=== PATIENT | male | born 1970 | race Caucasian/White ===

== ENCOUNTER 2018-02-24 14:14 | Emergency (ER) | payer OTHER ==
[2018-02-24 14:33] VITALS: BP 141/80
--- NOTE | 2018-02-24 14:47 | UC ---
Cardiac HPI - HPI Summary HPI Summary: Pt presents reporting increased pain left anterior chest wall with coughing. Pt states no pain before or after coughing. no radiation. No lightheadedness. No nausea, vomiting. No diaphoresis. Pt denies lightheadedness. Pt states pain increases with movement of arm. Pt denies all discomfort a presentation. Pt states has cough is chronic but slight increase over last 2 weeks. + sputum production - yellow to green. Pt has a PCP but has not been there recently Has ventolin - doesn't use it. Smokes 1.5 ppd + daily ETOH. Pt's medications reviewed this visit - History of Current Complaint Chief Complaint: UCChestPain Stated Complaint: CHEST PAIN Time Seen by Provider: 02/24/18 14:38 Hx Obtained From: Patient Onset/Duration: Other - brief with cough only Timing: Intermittent Episodes Lasting: - with cough only - brief Current Severity: None Pain Intensity: 0 Chest Pain Location: Left Anterior Aggravating Factor(s): Other - cough, movement LUE Alleviating Factor(s): Rest, Spontaneous Resolution Associated Signs & Symptoms: Positive: Chest Pain. Negative: Anxiety, Headaches , Numbness, Tingling, Weakness, Dizziness, Palpitations, Cough, Back Pain, Abdominal Pain - Allergy/Home Medications Allergies/Adverse Reactions: Allergies Allergy/AdvReac Type Severity Reaction Status Date / Time No Known Allergies Allergy Verified 02/24/18 14:28 PMH/Surg Hx/FS Hx/Imm Hx Previously Healthy: Yes Respiratory History: COPD - Surgical History Surgical History: Yes Surgery Procedure, Year, and Place: L knee surgery - Family History Known Family History: Positive: Cardiac Disease - father, Hypertension, Diabetes , Renal Disease - Social History Occupation: Employed Full-time Lives: With Family Alcohol Use: Daily Alcohol Amount: 9 drinks/day Substance Use Type: None Smoking Status (MU): Heavy Every Day Tobacco Smoker Type: Cigarettes Amount Used/How Often: 1 1/2 PPD Length of Time of Smoking/Using Tobacco: 28 Years Have You Smoked in the Last Year: Yes Household Exposure Type: Cigarettes - Immunization History Most Recent Influenza Vaccination: ~09/01/15 Review of Systems Constitutional: Negative Skin: Negative Eyes: Negative ENT: Negative Respiratory: Cough Cardiovascular: Negative Gastrointestinal: Negative Genitourinary: Negative All Other Systems Reviewed And Are Negative: Yes Physical Exam Triage Information Reviewed: Yes Appearance: Well-Appearing, No Pain Distress, Well-Nourished Vital Signs: Initial Vital Signs Temp 99.4 F 02/24/18 14:29 Pulse 101 02/24/18 14:29 Resp 28 02/24/18 14:29 BP 141/80 02/24/18 14:29 Pulse Ox 98 02/24/18 14:29 Vital Signs Reviewed: Yes Eye Exam: Normal Eyes: Positive: Conjunctiva Clear ENT Exam: Normal ENT: Positive: Normal ENT inspection, Hearing grossly normal, Pharynx normal, TMs normal, Uvula midline Dental Exam: Normal Neck exam: Normal Neck: Positive: Supple, Nontender, No Lymphadenopathy Respiratory: Positive: No respiratory distress, No accessory muscle use, Other: - no cough speaking full easy sentences reproducible left anterior chest wall pain at left sternal border Pain reproducible with ROM upper ext no crepitus scattered wheeze No rhonci. Negative: Chest non-tender Cardiovascular Exam: Normal Cardiovascular: Positive: RRR, No Murmur, Pulses Normal Abdominal Exam: Normal Abdomen Description: Positive: Nontender, No Organomegaly, Soft Bowel Sounds: Positive: Present Musculoskeletal Exam: Normal Musculoskeletal: Positive: Strength Intact Neurological Exam: Normal Neurological: Positive: Alert, Muscle Tone Normal Psychological Exam: Normal Psychological: Positive: Normal Response To Family Diagnostics - Radiology No standard instances Radiology Interpretation Completed By: Radiologist - Patient Name: YOEL ARGUETA Medical Record#: [id number] Ordering Physician: Angeline Cm MD Acct.#: [id number] : 1970 Age: 47 Sex: M Location: [facility] Exam Date: 02/24/18 1456 ADM Status: REG ER Order Information: CHEST PA LAT 2 [facility] Accession Number: [id number] CPT: 58076 HISTORY: Cough COMPARISONS: March VIEWS: 5: Frontal dual-energy and lateral views of the chest. FINDINGS : CARDIOMEDIASTINAL SILHOUETTE: The cardiomediastinal silhouette is normal. DOUG : The doug are normal. PLEURA: There is a small right pleural effusion. LUNG PARENCHYMA: There is hyperinflation with flattening of the diaphragm and expansion of the AP diameter of the chest. ABDOMEN: The upper abdomen is clear. There is no subphrenic gas. BONES AND SOFT TISSUES: No bone or soft tissue abnormalities are noted. OTHER: None. IMPRESSION: 1. COPD. 2. SMALL RIGHT PLEURAL EFFUSION. _ <Electronically signed by Clemente Trinidad MD in OV> 02/24/181516 Dictated By: Clemente Trinidad MD Dictated Date/Time: 02/24/181516 Transcribed Date/Time: 02/24/181514 - EKG Cardiac Rate: NL Cardiac Rhythm: Sinus: Normal Ectopy: None Re-Evaluation - Re-Evaluation First Eval Comment: wheeze resolved following neb. reviewed CXR with pt= - COPD and small effusion. pt to f/u with PCP. rx zithromax. expressed importance to decrease tobacco use, humify CPAP and follow-up with PCP for recheck of CXR and eval of pleural effusion. pt states understanding and agreement with plan - Assessment/Plan Course Of Treatment: pt with left anterior cp with cough only. Pt with chronic cough, productive yellow sputum. Pt with heavy tobacco use. Pt uses CPAP without humidity. will check CXR. neb. reassess. Pt has Albuterol - does not use. Pt's BP slightly elevated - existing dx - Clinical Impression Provider Diagnoses: copd. chest wall pain. pleural effusion. costochondritis Discharge - Sign-Out/Discharge Documenting (check all that apply): Discharge - Discharge Plan Condition: Stable Disposition: HOME Prescriptions: Azithromycin TAB* [Zithromax TAB (Z-DIANE) 250 mg #6 tabs] 2 tab PO .TODAY, THEN 1 DAILY #1 diane Patient Education Materials: Costochondritis (ED), COPD (Chronic Obstructive Pulmonary Disease) (ED), Pleural Effusion (ED), Chest Wall Pain (ED) Referrals: Nolan Rothman DO [Primary Care Provider] - Additional Instructions: - Stay well hydrated. Drink plenty of non-alcoholic, non-caffinated beverages - take antibiotics as prescribed until gone - Use you inhaler - 2 puffs every 4 hours today and tomorrow, then every 4 hours as needed for wheezing - work to decrease your cigarette smoking - humidify the air in your cpap - contact your doctor to schedule a follow-up to today's visit - discuss your lung/xray finding with your provider - okay to take motrin or tylenol for your chest wall pain - If your chest pain changes - becomes constant, not related to cough, you feel short of breath, sweaty or any concerns, call 911 or go directly to the emergency department - Billing Disposition and Condition Condition: STABLE Disposition: HOME
[2018-02-24] MEDS ORDERED: Albuterol/Ipratropium NEB.SOL* Albuterol 2.5 MG/Ipratropium 0.5 MG 3 ML INH ONE (14:56)
--- NOTE | 2018-02-24 15:20 | RAD ---
HISTORY: Cough COMPARISONS: March 31, 2013 VIEWS: 5: Frontal dual-energy and lateral views of the chest. FINDINGS: CARDIOMEDIASTINAL SILHOUETTE: The cardiomediastinal silhouette is normal. TRACEY: The tracey are normal. PLEURA: There is a small right pleural effusion. LUNG PARENCHYMA: There is hyperinflation with flattening of the diaphragm and expansion of the AP diameter of the chest. ABDOMEN: The upper abdomen is clear. There is no subphrenic gas. BONES AND SOFT TISSUES: No bone or soft tissue abnormalities are noted. OTHER: None. IMPRESSION: 1. COPD. 2. SMALL RIGHT PLEURAL EFFUSION.
== END 2018-02-24 15:41 | disposition home or self-care (01) ==
LOC: UCCORT 14:14
DX: J44.9 Chronic obstructive pulmonary disease, unspecified (principal); R07.89 Other chest pain; J90 Pleural effusion, not elsewhere classified; M94.0 Chondrocostal junction syndrome [Tietze]; F17.210 Nicotine dependence, cigarettes, uncomplicated
CPT/HCPCS: 71046; 93005; 99212; A9270-GY; G0463

== ENCOUNTER 2019-06-23 09:57 | Emergency (ER) | payer OTHER ==
[2019-06-23 10:36] VITALS: BP 111/72
--- NOTE | 2019-06-23 11:16 | UC ---
UC General HPI - HPI Summary HPI Summary: 48-year-old male comes in with a chief complaint of pain in his left buttock that runs all the way down the back of his leg into his left calf. Started about 3 weeks ago. Pain is worse with extension of the knee and leaning forward at the hip. Also worse with sitting or palpation. No weakness or numbness. He's taken occasional ibuprofen which helps minimally. No known specific injury. Denies any knowledge of any new activities such as a new sports or a new chair. Denies any low back pain. - History of Current Complaint Chief Complaint: UCLowerExtremity Stated Complaint: BACK TO LEG PAIN Time Seen by Provider: 06/23/19 11:00 Pain Intensity: 7 - Allergy/Home Medications Allergies/Adverse Reactions: Allergies Allergy/AdvReac Type Severity Reaction Status Date / Time No Known Allergies Allergy Verified 06/23/19 10:30 PMH/Surg Hx/FS Hx/Imm Hx Previously Healthy: Yes Endocrine History: Dyslipidemia Cardiovascular History: Hypertension - Surgical History Surgical History: Yes Surgery Procedure, Year, and Place: L knee surgery - Family History Known Family History: Positive: Cardiac Disease - father, Hypertension, Diabetes , Renal Disease - Social History Alcohol Use: Daily Alcohol Amount: 9 beers /day Substance Use Type: None Smoking Status (MU): Heavy Every Day Tobacco Smoker Type: Cigarettes Amount Used/How Often: 1 1/2 PPD Length of Time of Smoking/Using Tobacco: 28 Years Have You Smoked in the Last Year: Yes Household Exposure Type: Cigarettes - Immunization History Most Recent Influenza Vaccination: ~09/01/15 Review of Systems All Other Systems Reviewed And Are Negative: Yes Constitutional: Positive: Negative Skin: Positive: Negative Eyes: Positive: Negative ENT: Positive: Negative Respiratory: Positive: Negative Cardiovascular: Positive: Negative Gastrointestinal: Positive: Negative Genitourinary: Positive: Negative Motor: Positive: Negative Neurovascular: Positive: Negative Musculoskeletal: Positive: Other: - see hpi Neurological: Positive: Negative Psychological: Positive: Negative Is Patient Immunocompromised?: No Physical Exam Triage Information Reviewed: Yes Appearance: Well-Appearing, No Pain Distress, Well-Nourished Vital Signs: Initial Vital Signs Temp 98.4 F 06/23/19 10:31 Pulse 103 06/23/19 10:31 Resp 17 06/23/19 10:31 BP 111/72 08/08/19 10:31 Pulse Ox 100 06/23/19 10:31 Vital Signs Reviewed: Yes Eye Exam: Normal Eyes: Positive: Conjunctiva Clear Respiratory: Positive: No respiratory distress Musculoskeletal: Positive: Strength Intact, ROM Intact, Other: - Patient is tender to palpation in the left buttock and down to the back of the left leg into the left calf and the sciatic nerve distribution. Low back is nontender to palpation. MRSA is have full range of motion and full strength normal sensation normal capillary refill. The left sided pain is worsened with knee extension are direct palpation of the area. No edema. Neurological: Positive: Alert, Muscle Tone Normal Psychological: Positive: Age Appropriate Behavior Skin Exam: Normal Course/Dx - Course Course Of Treatment: Plan is to ice the area and also take ibuprofen on a regular basis. Can use Flexeril in the evening if needed to help with sleep and the pain. I gave the patient a physical therapy referral forearm and also recommended follow-up with sports medicine. - Diagnoses Provider Diagnosis: Left sided sciatica Discharge - Sign-Out/Discharge Documenting (check all that apply): Patient Departure All imaging exams completed and their final reports reviewed: No Studies - Discharge Plan Condition: Stable Disposition: HOME Prescriptions: Cyclobenzaprine TAB* [Flexeril 10 MG TAB*] 10 mg PO TID PRN #15 tab PRN Reason: Pain - Moderate Patient Education Materials: Sciatica (ED), Lower Back Exercises (ED) Referrals: Nolan Rothman DO [Primary Care Provider] - [facility] [Provider Group] Additional Instructions: FOLLOW UP WITH SPORTS MEDICINE AND PHYSICAL THERAPY. TAKE IBUPROFEN 600MG EVERY 6 HOURS THREE TIMES A DAY WITH FOOD. GET REEVALUATED SOONER IF WORSE; WEAKNESS, NUMBNESS, DIFFICULTY CONTROLLING BOWEL OR BLADDER OR ANY QUESTIONS OR CONCERNS. - Billing Disposition and Condition Condition: STABLE Disposition: Home
== END 2019-06-23 11:24 | disposition home or self-care (01) ==
LOC: UCCORT 09:57
DX: M79.18 Myalgia, other site (principal); M54.32 Sciatica, left side; I10 Essential (primary) hypertension; F17.210 Nicotine dependence, cigarettes, uncomplicated
CPT/HCPCS: 99212; G0463

== ENCOUNTER 2019-07-20 16:09 | Emergency (ER) | payer OTHER ==
--- OUTSIDE RECORDS SUMMARY | 2019-07-20 16:20 | XMS REPORT | Continuity of Care Document ---
:1970 External Reference #:[id number] Author Name Nolan Rothman DO Address [address] [place] [id number] Problems Active Problems Provider Date Intrinsic asthma without status asthmaticus Leobardo Mcfarland DO Onset: 05/23 Obstructive sleep apnea syndrome Leobardo Mcfarland DO Onset: 05/23/2011 Anxiety state Leobardo Mcfarland DO Onset: 04/19/2010 Tobacco user Leobardo Mcfarland DO Onset: 02/05/2007 Mixed hyperlipidemia Leobardo Mcfarland DO Onset: 09/12/2005 Benign essential hypertension Leobardo Mcfarland DO Onset: 09/12/2005 Sleep apnea Leobardo Mcfarland DO Onset: 11/24/2014 Mild persistent asthma Leobardo Mcfarland DO Onset: 11/30/2015 Social History Type Date Description Comments Sex Unknown Tobacco Use Start: Unknown Current Cigarette Smoker 1 1/2 Packs Daily Smoking Status Reviewed: 01/07/18 Current Cigarette Smoker 1 1/2 Packs Daily ETOH Use Occasionally consumes alcohol ETOH Use Occasionally consumes beer Tobacco Use Start: Unknown Patient is a current smoker, 1 1/2 PPD smokes every day Recreational Drug Use Denies Drug Use Allergies, Adverse Reactions, Alerts Description No Known Drug Allergies Medications Active Medications SIG Qnty Indications Ordering Provider Date Alprazolam ER 1 by mouth daily 30tabs F41.9 Nolan Rothman, 01/04/2019 1mg DO Tablets ER 24HR Fluticasone spray two sprays 48units J30.9 Nolan Rothman, 02/26/2017 Propionate in each nostril DO 50mcg/Act every day as Suspension needed Alprazolam 1 by mouth every 30tabs F41.9 Nolan Rothman, 11/22/2015 1mg Tablets at bedtime - do DO not fill until 05/08/19 Paroxetine HCL Take One Tablet 90tabs F41.9 Stephan Nolan, 01/25/2015 30mg By Mouth Every DO Tablets Day Valsartan-Hydrochloro take one tablet 90tabs I10 Stephan Nolan, 2014 thiazide by mouth every DO 160-12.5mg day Tablets Atorvastatin Calcium Take One Tablet 90tabs E78.2 Nolan Rothman, 2011 By Mouth Every DO 20mg Tablets Day [facility] Vitamin D 2 po qd 30caps E55.9 Leobardo Mcfarland, 05/23/2011 2000Unit DO Capsules Medications Administered in Office Medication SIG Qnty Indications Ordering Provider Date Depo Medrol 80 MG Leobardo Mcfarland, 03/06/2016 Injection Depo Medrol 80 MG Leobardo Mcfarland, 03/06/2016 Injection Depo Medrol 40 MG Leobardo Mcfarland, 03/06/2016 Injection Immunizations CPT Code Status Date Vaccine Reaction Lot # [id number] Given 09/25/2018 Influenza Vac, Quadrivalent, Split, 0.5mL Dosage, Im Use Q2039 Given 09/03/2017 Flu Vaccine NOS Given at [facility], [address] Q2037 Given 09/11/2016 Fluvirin Immunization Given At Pharmacy [facility] O/281 Q2037 Given 09/05/2015 Fluvirin Immunization Given At Pharmacy [facility] [address] Given 08/05/2013 Afluria Or Fluvirin Flu Vac Intramuscular 95451 Given 09/13/2010 Afluria Or Fluvirin Flu Vac Intramuscular 89232 Given 08/24/2009 Afluria Or Fluvirin Flu Vac Intramuscular 90206 Given 09/20/2008 Afluria Or Fluvirin Flu Vac Intramuscular 25981 Refused 02/24/2019 Tdap (Adacel) Ages 7 And Above Only Q2035 Refused 08/20/2018 Afluria Imunization Vital Signs Date Vital Result Comment 06/24/2019 1:18pm Weight 204.00 lb Heart Rate 102 /min BP Systolic 154 mmHg BP Diastolic 90 mmHg Respiratory Rate 18 /min Height 66.25 inches 5'6.25" BMI (Body Mass Index) 32.7 kg/m2 02/24/2019 10:43am Weight 206.00 lb Heart Rate 84 /min BP Systolic 138 mmHg BP Diastolic 82 mmHg Respiratory Rate 17 /min Height 66.25 inches 5'6.25" BMI (Body Mass Index) 33.0 kg/m2 Results Test Date Facility Test Result H/L Range Note CBC with Auto Diff-fcmg 06/17/2019 [facility] WBC 6.3 K/uL 4.1-11.0 RBC 4.47 M/uL Low 4.60-6.10 Hemoglobin 15.3 gm/dL 13.5-18.0 Hematocrit 43.7 % 41.0-53.0 MCV 97.9 fL High 80.0-97.0 MCH 34.2 pg High 27.0-32.0 MCHC 35.0 g/dL 32.0-36.0 RDW 12.7 % 11.5-14.5 PLT Count 321 K/ul 140-400 MPV 6.5 FL Low 7.1-10.7 Neutrophil 62.3 % 35.0-75.0 Lymphocyte 23.2 % 16.0-52.0 Monocyte 7.8 % 2.0-10.0 Eosinophil 5.2 % High 0.0-5.0 Basophil 1.5 % 0.0-4.0 Abs Neutrophils 3.9 K/uL 2.1-8.0 Abs Lymphocytes 1.5 K/uL 0.8-5.5 Abs Monocytes 0.5 K/uL 0.1-1.0 Abs Eosinophils 0.3 K/uL 0.0-0.5 Abs Basophils 0.1 K/uL 0.0-0.3 Basic (BMP) 06/17/2019 [facility] Sodium 141 mmol/L 135-146 1 Potassium 4.4 mmol/L 3.5-5.2 Chloride# 101 mmol/L 97-110 2 Carbon Dioxide 30 mmol/L 24-34 Glucose 79 mg/dL 70-105 BUN 8 mg/dL 6-26 Creatinine 0.7 mg/dL 0.5-1.4 Calcium 9.1 mg/dL 8.5-10.5 3 Female Egfr 101 >60 4 Male Egfr 110 >60 5 Anion Gap 10 mmol/L 5-15 6 Laboratory test finding 06/17/2019 [facility] TSH 0.79 uIU/mL 0.35-4.94 Lipid Treatment 06/17/2019 [facility] Cholesterol 115 mg/dL 50-199 Triglycerides 77 mg/dL 30-200 HDL 52 mg/dL 29-71 7 Chol/ HDL Ratio 2.2 ratio Low 4.0-6.7 VLDL 15 mg/dL 2-29 LDL (Calc) 48 mg/dL 20-99 8 Alt 17 U/L 3-42 Ast 23 U/L 8-42 Laboratory test 06/17/2019 [facility] Vitamin D 25 24 ng/mL Low 30-100 9 finding Hydroxy Drugs Of 02/24/2019 [facility] Amphetamines,Urin NEGATIVE <1000 ng/mL Abuse,Urine-[facility] e Barbiturates,Urine NEGATIVE <200 ng/mL Benzodiazepines, Urine POSITIVE Abnormal <200 ng/mL Bupernorphrine/Norbu,Urine NEGATIVE <10 ng/mL Cocaine Metabolites,Urine NEGATIVE <300 ng/mL Methadone,Urine NEGATIVE <300 ng/mL Opiates,Urine NEGATIVE <300 ng/mL Oxycodone,Urine NEGATIVE <100 ng/mL Phencyclidine,Urine NEGATIVE <25 ng/mL Cannabinoids,Urine NEGATIVE <50 ng/mL 1 Updated reference range on new analyzer 2 Updated reference range on new analyzer 3 Updated reference range 03-16-2019 4 Concerning GFR Guidelines for Americans: Normal function or mild renal disease, if clinically at risk: >/= 60 mL/min Moderately decreased: 30-59 Severely decreased: 15-29 Renal failure: <15 There is reduced accuracy above 60ml/min/1.73 m squared, but the numeric value may be clinically useful in the near 60 range 5 Concerning GFR Guidelines: Normal function or mild renal disease, if clinically at risk: >/= 60 mL/min Moderately decreased: 30-59 Severely decreased: 15-29 Renal failure: <15 There is reduced accuracy above 60ml/min/1.73 m squared, but the numeric value may be clinically useful in the near 60 range Glomerular Filtration Rate (GFR) is estimated based on the CKD-EPI equation, which assumes a steady state for creatinine as recommended by the National Kidney Disease Education Program in conjunction with the National Institutes of Health and the National Kidney Foundation. Clinical conditions in which it may be necessary to measure GFR by using clearance methods include extremes of age and body size, severe malnutrition or obesity, diseases of skeletal muscle, paraplegia or quadriplegia, vegetarian diet, rapidly changing kidney function, and calculation of the dose of potentially toxic drugs that are excreted by the kidneys. 6 Updated Reference Range 2-2017 7 Per NCEP ATP III Guidelines: Results lower than 40 mg/dL are suggestive of increased risk for coronary artery disease. Results > or = to 60 mg/dL are considered a negative risk factor. 8 Per NCEP ATP III Guidelines: Normal Population <130 Patients with medical conditions: CHD/DM Optimal: <100 Borderline high: 130-159 High: 160-189 Very high: >189 9 Clinical Guidelines for recommended serum 25(OH)Vitamin D Deficient at less than 20 ng/mL Insufficient at 20 to <30 ng/mL Sufficient at 30-100 ng/mL Toxicity at greater than 100 ng/mL Procedures Description No Information Available Medical Devices Description No Information Available Encounters Type Date Location Provider Dx Diagnosis Office Visit 02/24/2019 [facility] Nolan Rothman, I10 Essential (primary) 10:15a hypertension E55.9 Vitamin D deficiency, unspecified F41.9 Anxiety disorder, unspecified E78.2 Mixed hyperlipidemia G47.33 Obstructive sleep apnea (adult) (pediatric) J45.30 Mild persistent asthma, uncomplicated F17.200 Nicotine dependence, unspecified, uncomplicated J30.9 Allergic rhinitis, unspecified E66.9 Obesity, unspecified R05 Cough Z68.33 Body mass index (BMI) 33.0-33.9, adult Assessments Date Code Description Provider 06/24/2019 I10 Essential (primary) hypertension Nolan Rothman, 06/24/2019 E55.9 Vitamin D deficiency, unspecified Nolan Rothman, 06/24/2019 F41.9 Anxiety disorder, unspecified Nolan Rothman, 06/24/2019 E78.2 Mixed hyperlipidemia Nolan Rothman, 06/24/2019 G47.33 Obstructive sleep apnea (adult) (pediatric) Nolan Rothman , 06/24/2019 J45.30 Mild persistent asthma, uncomplicated Nolan Rothman, 06/24/2019 F17.200 Nicotine dependence, unspecified, Nolan Rothman DO uncomplicated 06/24/2019 J30.9 Allergic rhinitis, unspecified RothmanNolan dalton, 06/24/2019 R05 Cough Nolan Rothman, 06/24/2019 E66.9 Obesity, unspecified RothmanNolan dalton, 06/24/2019 M54.32 Sciatica, LEFT side RothmanNolan, 06/24/2019 Z68.32 Body mass index (BMI) 32.0-32.9, adult RothmanNolan, 06/17/2019 I10 Essential (primary) hypertension Nolan Rothman, DO 06/17/2019 I10 Essential (primary) hypertension Schedule, Laboratory 06/17/2019 E55.9 Vitamin D deficiency, unspecified Ozzie Rothmanew, DO 06/17/2019 E55.9 Vitamin D deficiency, unspecified Schedule, Laboratory 06/17/2019 I10 Essential (primary) hypertension [facility] 06/17/2019 E55.9 Vitamin D deficiency, unspecified [facility] 02/24/2019 I10 Essential (primary) hypertension StephanNolan, DO 02/24/2019 E55.9 Vitamin D deficiency, unspecified Stephan Nolan, DO 02/24/2019 F41.9 Anxiety disorder, unspecified Nolan Rothman, 02/24/2019 E78.2 Mixed hyperlipidemia Nolan Rothman, DO 02/24/2019 G47.33 Obstructive sleep apnea (adult) (pediatric) RothmanNolan , 02/24/2019 J45.30 Mild persistent asthma, uncomplicated Nolan Rothman, DO 02/24/2019 F17.200 Nicotine dependence, unspecified, Stephan NolanDO uncomplicated 02/24/2019 J30.9 Allergic rhinitis, unspecified Stephan Nolan, DO 02/24/2019 E66.9 Obesity, unspecified Nolan Rothman, 02/24/2019 R05 Cough Nolan Rothman, DO 02/24/2019 Z68.33 Body mass index (BMI) 33.0-33.9, adult StephanNolan, 02/24/2019 F41.9 Anxiety disorder, unspecified [facility] Plan of Treatment Future Appointment(s):09/29/2019 10:15 am - [facility]06/[facility]/2019 - Nolan Rothman DOI10 Essential (primary) hypertensionComments:Today, the patient's BP is at 154/90. The patient's was advised to continue with current line of therapies. The patient will benefit from maintaining a low sodium diet. The patient was encouraged tomonitor his BP periodically at home and maintain a log of the same to bring along during his next visit for comparison. We will continue to monitor.Follow up:The patient will follow up with me in 3 months.E55.9 Vitamin D deficiency, lgokhcfrrjdN08.9 Anxiety disorder, sfhxgwirarxS57.2 Mixed gjxbbcbrhlscynB05.33 Obstructive sleep apnea (adult) ( pediatric)J45.30 Mild persistent asthma, znjdwugyfzvwqC81.200 Nicotine dependence, unspecified, vfzxqbngfemtbR71.9 Allergic rhinitis, mlljofrheazT53 OwcxiX74.9 Obesity, zgwhuxobwxnR00.32 Sciatica, LEFT sideComments:On examination the patient has had left leg sciatica. Discussed different treatment options which include1. Heat and stretching.2. Advised the patient to continue taking Ibuprofen.3. Advised the patient to start taking the muscle relaxer, cyclobenzaprine he was given at [facility] care.4. If the symptoms continue to persist or worsen, he will call or come back to the clinic.5. We will continue to monitor.Z68.32 Body mass index (BMI) 32.0-32.9, adultComments: The patient's BMI is at 32.7. The patient was strongly encouraged to lose weight with low-calorie diet and exercises. We will continue to monitor weight and BMI periodically. Functional Status Description No Information Available Mental Status Description No Information Available Referrals Description No Information Available
--- NOTE | 2019-07-20 16:26 | UC ---
Back Pain HPI - HPI Summary HPI Summary: pt is c/o pain in his L buttock area that goes down his leg and sometimes into his foot x 5-6 weeks. he denies any hx of injury. he was seen here last month for same and given PT referral plus tx with ibuprofen/mm relaxor which helped a little. he was able to see his pcp the next day who added prednisone which did nothing. he states his pcp said he would not be able to have PT without xrays so he never went and that the PCP never ordered xrays either. pt does sit for long periods of time for his job. - History of Current Complaint Stated Complaint: LEFT BUTTOCK/LOWER LEG PAIN Hx Obtained From: Patient, Family/[employer] Aggravating Factor(s): Bending, Other - being seated and straightening the L leg. Associated Signs And Symptoms: Positive: Other - no saddle anesthesia. Negative : Swelling, Fever, Weakness, Flank Pain, Bladder Incontinence, Bowel Incontinence - Risk Factors Cauda Equina Risk Factors: Negative Epidural Abscess Risk Factors: Negative - Allergies/Home Medications Allergies/Adverse Reactions: Allergies Allergy/AdvReac Type Severity Reaction Status Date / Time No Known Allergies Allergy Verified 07/20/19 16:21 PMH/Surg Hx/FS Hx/Imm Hx Endocrine History: Dyslipidemia Cardiovascular History: Hypertension Psychological History: Anxiety, Depression - Surgical History Surgical History: Yes Surgery Procedure, Year, and Place: L knee surgery - Family History Known Family History: Positive: Cardiac Disease - father, Hypertension, Diabetes , Renal Disease - Social History Occupation: Employed Full-time Lives: With Family Alcohol Use: Daily Alcohol Amount: 9 beers /day Substance Use Type: None Smoking Status (MU): Heavy Every Day Tobacco Smoker Type: Cigarettes Amount Used/How Often: 1 1/2 PPD Length of Time of Smoking/Using Tobacco: 28 Years Have You Smoked in the Last Year: Yes Household Exposure Type: Cigarettes - Immunization History Most Recent Influenza Vaccination: ~09/01/15 Review of Systems All Other Systems Reviewed And Are Negative: No Constitutional: Negative: Fever, Chills Skin: Negative: Rash Cardiovascular: Negative: Palpitations, Chest Pain Gastrointestinal: Negative: Abdominal Pain Musculoskeletal: Negative: Decreased ROM, Edema Neurological: Negative: Weakness Physical Exam Triage Information Reviewed: Yes Appearance: Well-Appearing Vital Signs Reviewed: Yes Eyes: Positive: Conjunctiva Clear ENT: Positive: Normal ENT inspection Neck: Positive: Supple, Nontender, No Lymphadenopathy, Other: - c-spine is non tender Respiratory: Positive: Lungs clear, Normal breath sounds, No respiratory distress Cardiovascular: Positive: RRR, No Murmur, Pulses Normal - x4 Abdomen Description: Positive: Nontender, No Organomegaly, Soft. Negative: Pulsatile Mass Bowel Sounds: Positive: Present Musculoskeletal: Positive: Other: - Back: no rash. ? slight curvature to mid back. spine is non tender throughtout and rom is intact. 5/5 strength, 2+ reflexes and sensation intactx4. No saddle anesthesia. Steady gait. + straightleg raise L, negative on R. L sciatic notch tenderness, R is non tender. Neurological: Positive: Alert Psychological: Positive: Age Appropriate Behavior Skin Exam: Normal Skin: Negative: Rashes Diagnostics - Radiology No standard instances Radiology Interpretation Completed By: Radiologist - IMPRESSION: 1. DEGENERATIVE DISC DISEASE AND OSTEOARTHRITIS. 2. 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 pELVIS:NO ACUTE OSSEOUS INJURY. IF SYMPTOMS PERSIST , RECOMMEND REPEAT IMAGING Back Pain Course/Dx - Differential Dx/Diagnosis Differential Diagnosis/HQI/PQRI: Other - non toxic, no acute abdomen. no concern for claudication, infection or cauda equina. c/w sciatica. will tx with nsaid, mm relaxor and f/u PT(pt has order). Provider Diagnosis: Sciatica of left side Discharge ED - Sign-Out/Discharge Documenting (check all that apply): Patient Departure All imaging exams completed and their final reports reviewed: No Studies - Discharge Plan Condition: Stable Disposition: HOME Prescriptions: Cyclobenzaprine TAB* [Flexeril 10 MG TAB*] 10 mg PO TID PRN #10 tab PRN Reason: SCIATICA PAIN Naproxen [Naprosyn 500 mg tab] 500 mg PO BID 7 Days #14 tablet Patient Education Materials: Sciatica (ED), Spondylolisthesis (ED) Referrals: Nolan Rothman DO [Primary Care Provider] - 7 Days Additional Instructions: FOLLOW UP WITH PT SOON POSSIBLE - Billing Disposition and Condition Condition: STABLE Disposition: Home - Attestation Statements Provider Attestation: This patient was not seen by me. I was available for consult. MISAEL
[2019-07-20 16:27] VITALS: BP 135/83
[2019-07-20] MEDS ORDERED: Ibuprofen ADULT LIQ* 600 MG/30 ML UDC PO ONE (16:45)
[2019-07-20] MEDS ORDERED: Cyclobenzaprine TAB* 10 MG PO ONE (16:45)
== END 2019-07-20 17:30 | disposition home or self-care (01) ==
LOC: UCCORT 16:09
DX: M54.32 Sciatica, left side (principal); I10 Essential (primary) hypertension; F17.210 Nicotine dependence, cigarettes, uncomplicated
CPT/HCPCS: 72110; 72170; 99212; A9270-GY; G0463